=== PATIENT | male | born 1980 | race Caucasian/White ===

== ENCOUNTER → 2021-03-01 11:48 | Outpatient (BNVA) | payer SELFPAY | PROVIDERS: Family Provider Family Medicine; PCP Family Medicine; Visit Provider Registered Nurse | DX: I10 Essential (primary) hypertension (principal); E11.9 Type 2 diabetes mellitus without complications; F41.1 Generalized anxiety disorder; Z76.89 Persons encountering health services in other specified circumstances; E66.9 Obesity, unspecified; M77.8 Other enthesopathies, not elsewhere classified; R10.9 Unspecified abdominal pain | CPT/HCPCS: 80053; 81000; 82043; 83036; 85025 ==

== ENCOUNTER 2022-01-11 14:17 | Emergency (ER) | payer SELFPAY ==
[2022-01-11] VITALS (7 sets, daily range): BP systolic 147–159; BP diastolic 93–95; PULSE 76–101; RESP 14–21; TEMP 36.2; O2SAT 91–94; BMI 29.4
--- NOTE | 2022-01-11 14:27 | XR_ITS ---
WS: [id number] Exam: XR chest 1V portable [id number] Date/Time of Exam: 01/11/2022 2:29 PM Reason For Exam: sob Comparison 05/16/2018. Findings: The lungs are clear and fully expanded. Costophrenic angles are sharp. No infiltrates. Bronchovascula r relief appears normal. Cardiac silhouette is unremarkable. Bony elements are intact. XR/XR chest 1V portable [id number] IMPRESSION: Unremarkable chest radiograph.
--- NOTE | 2022-01-11 14:28 | ED_ITS ---
Documented by User: TRACY Bautista 01/12/22 07:00 HPI - URI/Sore Throat General: Chief Complaint: Shortness of Breath/Dyspnea Stated Complaint: chest pain, sob Time Seen by Provider: 01/11/22 14:27 Source: patient and family Mode of arrival: ambulatory Limitations: no limitations History of Present Illness: Patient is a nice 41-year-old male who presents to ED today along with his significant other for complaints of SOB, right rib pain, chest congestion, nasal congestion, drainage over the past 2 weeks or so. Patient was apparently seen at urgent care in his car and vitals were reported at 87% with a heart rate of 102. Abnormal lung sounds. Because of this he was advised to come to the ED. feels like his sats were low as he was coughing while they were being obtained. Patient is anywhere from 90-93% on room air during my examination. Heart rate is in the 80s. Patient is vaccinated for COVID. He has not been running fevers. He does not complain of a headache or diarrhea. No loss of taste or smell. Patient is not a smoker. No sick contacts. MD elicited complaint: cough and nasal congestion Onset (ago): week(s) (2 weeks) Consistency: constant Able to tolerate fluids by mouth: Yes Associated symptoms: Reports chest pain (R lower rib pain), nasal congestion and sinus pain; Deny abdominal pain, chills, diarrhea, fever(s), headache(s), nausea or vomiting Review of Systems Const: Denies: fever(s), chills, body aches, fatigue or malaise Eyes: Denies: change in vision or blurry vision ENMT: Reports: nasal discharge, nasal congestion, post nasal drip and sinus pain; Denies: throat pain or odynophagia Card: Reports: chest pain (R lower rib pain); Denies: palpitations, irregular heart rhythm, edema, swelling of feet/ankles, lightheadedness, syncope, pre-syncope, dyspnea on exertion or leg pain with exertion Resp: Reports: dyspnea, productive cough, pain on inspiration and chest congestion; Denies: wheezing, stridor or hemoptysis GI: Denies: abdominal pain, nausea, vomiting or diarrhea Musc: Denies: neck pain, back pain, extremity pain or joint pain Skin/Breast: Denies: rash Neuro: Denies: headache(s) PFS ED PFSH: Medical History Diabetes 1.5, managed as type 2 Managed by [employer] Hypertension Small fiber neuropathy Managed by [employer] [facility]. Family History Grandfather Cancer Diabetes Hyperlipidemia Hypertension Stroke Grandmother Cancer Diabetes Dementia Hyperlipidemia Hypertension Stroke Father Diabetes Hyperlipidemia Hypertension Mother Hypertension Social History Smoking and tobacco status: never smoked Alcohol intake: never Adopted: No Caregiver/support person: No Lives independently: No Household members: spouse and children service: No Current occupational status: employed History of recent travel: No Sexually active: Yes Current gender identity: Male Physical Exam Const: COMMON NORMALS: no acute distress, patient oriented x3, no limitations, alert and well nourished GENERAL APPEARANCE: cooperative ORIENTATION/CONSCIOUSNESS: Yes awake, Yes oriented to person, Yes oriented to place and Yes oriented to time HENMT: COMMON NORMALS: normocephalic, atraumatic and Normal external nose present HEAD & SCALP: normal to inspection, normocephalic and atraumatic FACE & SINUS: sinuses nontender NOSE: Normal external nose present THROAT: posterior oropharynx normal Neck/C-Spine: COMMON NORMALS: no lymphadenopathy Chest: COMMONS NORMALS: normal inspection of the chest OTHER: TTP R lower anterior ribs-palpation directly reproduces patient's pain Resp: COMMON NORMALS: normal respiratory effort, No retractions and No use of accessory muscles AUSCULTATION: rhonchi Cardio: COMMON NORMALS: regular rate and regular rhythm RATE: regular rate RHYTHM: regular rhythm GI: COMMON NORMALS: Normal to inspection, nondistended, normoactive bowel sounds present, Soft to palpation, non-tender, No hepatosplenomegaly present and no masses PALPATION: Yes Soft to palpation and Yes No hepatosplenomegaly present Extremity: COMMON NORMALS: capillary refill normal, no clubbing, cyanosis or edema, no calf tenderness and no pedal edema Neuro: COMMON NORMALS: patient oriented x3 SENSORIUM/ORIENTATION: Yes alert, Yes oriented to person, Yes oriented to place and Yes oriented to time Course ED course: Blood sugars over 500. After speaking to patient further he states he only checks his sugars about once a week and they are normally in the 300s. He states over the past two weeks since he has been sick they have been running in the 500s. He has not taken his insulin today. He is not having any vomiting, abdominal pain, or diarrhea. No previous hx of DKA. Will go ahead and order him some fluids/insulin here. He states he has a referral to see Dr. Renteria/endocrinology for further management of his diabetes. Reevaluation(s): Reevaluation #1: I've checked on patient multiple times and he is consistently satting around 91% on RA. CXR normal. Rapid COVID negative. PCR pending. I'm not sure why an otherwise healthy individual would be mildly hypoxic at rest. ABG obtained which shows a pO2 of 60. DKA ruled out. I am going to order CTA for further evaluation of lungs and to r/o PE. I did get patient up myself and walk him around the room. O2 stayed about the same but he became tachy in the mid 120s and was visibly SOB. Vital Signs: Vital signs: Vital Signs Temperature 97.2 F L 01/11/22 14:25 Pulse Rate 86 01/11/22 17:46 Respiratory Rate 18 01/11/22 17:46 Blood Pressure 159/95 01/11/22 17:46 Pulse Oximetry 93 01/11/22 17:46 MDM - URI/Sore Throat Lab Data : 01/11/22 14:42 01/11/22 14:42 Radiology Impressions Chest X-Ray 01/11/22 14:27 IMPRESSION: Unremarkable chest radiograph. Chest CTA 01/11/22 16:16 IMPRESSION: 1. No evidence for pulmonary embolism. 2. No acute cardiopulmonary process. 3. Incidental/nonacute findings are listed in the report. Laboratory Results WBC 6.8 10^3/uL (4.0-10.0) 01/11/22 14:42 RBC 5.43 10^6/uL (4.1-5.3) H 01/11/22 14:42 Hgb 15.9 g/dL (11.7-16.6) 01/11/22 14:42 Hct 46.0 % (42.0-52.0) 01/11/22 14:42 MCV 84.7 fl (80-94) 01/11/22 14:42 MCH 29.3 pg (28.0-34.0) 01/11/22 14:42 MCHC 34.6 g/dL (30.0-36.0) 01/11/22 14:42 RDW 11.9 % (12.1-15.1) L 01/11/22 14:42 Plt Count 279 10^3/cmm (130-400) 01/11/22 14:42 MPV 9.5 fL (7.4-10.4) 01/11/22 14:42 Neut % (Auto) 45.2 % 01/11/22 14:42 Lymph % (Auto) 30.5 % 01/11/22 14:42 Sawyer % (Auto) 5.7 % 01/11/22 14:42 Eos % (Auto) 16.6 % 01/11/22 14:42 Baso % (Auto) 1.6 % 01/11/22 14:42 Neut # (Auto) 3.07 10^3/uL (1.8-7.7) 01/11/22 14:42 Lymph # (Auto) 2.1 10^3/uL (0.8-4.8) 01/11/22 14:42 Sawyer # (Auto) 0.4 10^3/uL (0.2-0.9) 01/11/22 14:42 Eos # (Auto) 1.1 10^3/uL (0.0-0.8) H 01/11/22 14:42 Baso # (Auto) 0.1 10^3/uL (0.0-0.1) 01/11/22 14:42 Nucleated RBC % (auto) 0 % 01/11/22 14:42 Nucleated RBCs # 0.0 /100WBC 01/11/22 14:42 Specimen Type Arterial 01/11/22 15:53 Sample Site Radial, right 01/11/22 15:53 ABG pH 7.42 (7.35-7.45) 01/11/22 15:53 ABG pCO2 37.7 mmHg (35-45) 01/11/22 15:53 ABG pO2 60.7 mmHg (80.0-100.0) L 01/11/22 15:53 ABG HCO3 24.3 mmol/L (22-26) 01/11/22 15:53 ABG O2 Saturation 93.0 01/11/22 15:53 ABG Base Excess 0.0 mmol/L (-2.0-2.0) 01/11/22 15:53 Elias Test Pos 01/11/22 15:53 A-a O2 Gradient 5.5 mmHg (5-10) 01/11/22 15:53 Hematocrit 47.0 % (42-52) 01/11/22 15:53 Hgb O2 Saturation 91.7 % (95-100) L 01/11/22 15:53 Carboxyhemoglobin 1.0 %THgb (0.4-20.1) 01/11/22 15:53 Methemoglobin 0.4 % (0.4-1.5) 01/11/22 15:53 Total Hemoglobin 15.3 g/dL (14-18) 01/11/22 15:53 Sodium 139.0 mmol/L (131-143) 01/11/22 15:53 Potassium 4.2 mmol/L (3.5-5.0) 01/11/22 15:53 Glucose 460.0 mg/dL (70-115) H 01/11/22 15:53 Ionized Calcium Not Reportable 01/11/22 15:53 O2 Delivery Device Room air 01/11/22 15:53 FiO2 21.0 % 01/11/22 15:53 Stock Replenisher ID Monro 01/11/22 15:53 Sodium 137 mmol/L (136-145) 01/11/22 14:42 Potassium 4.6 mmol/L (3.5-5.1) 01/11/22 14:42 Chloride 99 mmol/L (98-107) 01/11/22 14:42 Carbon Dioxide 21 mmol/L (22-29) L 01/11/22 14:42 Anion Gap 21.6 (5-19) H 01/11/22 14:42 BUN 11 mg/dL (6-20) 01/11/22 14:42 Creatinine 1.0 mg/dL (0.7-1.2) 01/11/22 14:42 GFR Calculation 81.9 mL/min (90-130) L 01/11/22 14:42 Glucose 508 mg/dL (65-115) H* 01/11/22 14:42 POC Glucose 408 mg/dL (70-110) H 01/11/22 17:05 Calculated Osmolality 306 mOsm/kg (285-295) H 01/11/22 14:42 Calcium 9.3 mg/dL (8.5-10.5) 01/11/22 14:42 Total Bilirubin 0.4 mg/dL (0.15-1.2) 01/11/22 14:42 AST 13 U/L (0-40) 01/11/22 14:42 ALT 18 U/L (0-41) 01/11/22 14:42 Alkaline Phosphatase 105 IU/L (40-130) 01/11/22 14:42 Total Protein 7.0 g/dL (6.6-8.7) 01/11/22 14:42 Albumin 4.3 g/dL (3.5-5.2) 01/11/22 14:42 Globulin 2.7 g/dL (1.3-4.6) 01/11/22 14:42 Procalcitonin 0.05 ng/mL (0-0.5) 01/11/22 14:42 Serum Ketones Negative (Negative) 01/11/22 14:42 Coronavirus 229E (PCR) Detected (NOT DETECT) A 01/11/22 14:31 SARS-CoV-2 (PCR) Not detected (NOT DETECT) 01/11/22 14:31 SARS-CoV-2 Ag (Rapid) Negative (Negative) 01/11/22 14:36 Discharge Plan Discharge Patient Disposition: Home Clinical Impression: Bronchitis Condition: Stable Prescriptions: New doxycycline monohydrate 100 mg capsule 100 mg PO BID 7 Days Qty: 14 0RF albuterol sulfate 90 mcg/actuation HFA aerosol inhaler 2 inh inhalation Q4H PRN (Reason: shortness of breath or wheezing) Qty: 8.5 0RF No Action gabapentin 600 mg tablet 1,200 mg PO TID 0RF carvedilol 12.5 mg tablet 12.5 mg PO BID 0RF Rx Instructions: must administer with a meal/food clopidogrel 75 mg tablet 75 mg PO DAILY 0RF metformin 500 mg tablet extended release 24 hr See Rx Instructions .ROUTE .COMPLEX 0RF Rx Instructions: 500mg po qam,500mg po at noon and 1000mg po qpm atorvastatin 20 mg tablet 20 mg PO BEDTIME 0RF Novolin R Regular U-100 Insuln 100 unit/mL solution See Rx Instructions .ROUTE .COMPLEX 0RF Rx Instructions: sliding scale 13-17 units with meals Novolin N Flexpen 100 unit/mL (3 mL) insulin pen 30 unit SUBCUT BID 0RF sildenafil 50 mg tablet 50 mg PO DAILY PRN (Reason: Erectile Dysfunction) 0RF Rx Instructions: administer 30 minutes to 4 hours before activity buspirone 10 mg tablet See Rx Instructions .ROUTE .COMPLEX Qty: 45 0RF Dose Instruction: TAKE 1/2 TO 1 (ONE-HALF TO ONE) TABLET BY MOUTH TWICE DAILY Rx Instructions: 10mg po qam and 5mg po bedtime lisinopril 20 mg tablet 20 mg PO DAILY 0RF alpha lipoic acid 100 mg Capsule 100 mg PO TID 0RF Vitamin B-12 50 mcg Tablet 50 mcg PO DAILY 0RF folic acid 800 mcg Tablet 0.8 mg PO DAILY 0RF Cinnamon 500 mg Capsule 500 mg PO DAILY 0RF duloxetine 30 mg capsule,delayed release(DR/EC) 30 mg PO BID 0RF Discharge Orders: Discharge ED (Routine); Ordered 01/11/22 Ordered By: Hemal Fuentes Referrals: Moreno Poe MD [Primary Care Provider] - Discharge Diet: Usual diet Discharge Activity: Increase activity as tolerated Patient Instructions: Acute Bronchitis (ED) Activity Restrictions/Additional Instructions: Home and rest. Drink plenty of fluids. Activity as tolerated. Take antibiotics doxycycline 100 mg twice a day for 7 days. Use albuterol inhaler 2 puffs every 4 hours as needed for coughing, shortness of breath, or increased wheezing. Return to ER for worsening symptoms such as high fever greater than 100.4, worsening chest pain, worsening shortness of breath. Stand Alone Forms: Work/School Release Sign Out Sign Out Data: Patient Sign Out occurred on 01/11/22 at 16:56. Patient's care was discussed, and care was transferred from to Hemal Fuentes. Post-Handoff Eval: Patient was resting well. Lungs auscultated no adventitious sounds were decreased in the bases. Skin was warm and dry. Vital signs were normal. 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 Family History Grandfather Cancer Diabetes Hyperlipidemia Hypertension Stroke Grandmother Cancer Diabetes Dementia Hyperlipidemia Hypertension Stroke Father Diabetes Hyperlipidemia Hypertension Mother Hypertension Social History Smoking and tobacco status: never smoked Alcohol intake: never Adopted: No Caregiver/support person: No Lives independently: No Household members: spouse and children service: No Current occupational status: employed History of recent travel: No Sexually active: Yes Current gender identity: Male Course Vital Signs: Vital signs: Vital Signs Temperature 97.2 F L 01/11/22 14:25 Pulse Rate 86 01/11/22 17:46 Respiratory Rate 18 01/11/22 17:46 Blood Pressure 159/95 01/11/22 17:46 Pulse Oximetry 93 01/11/22 17:46 MDM - URI/Sore Throat Medical Decision Making 41-year-old male patient comes in today with complaints of cough and chest discomfort for the last 2 weeks. Patient has had a COVID test last week it was negative. On exam lungs are decreased in the bases. Skin is warm and dry. Vital signs show some increase in respirations at 21, afebrile, pulse oxygen of 93%, mild elevation in blood pressure 147/93. Differential diagnosis includes pneumonia, bronchitis, pulmonary embolism. Laboratory values noted a unremarkable CBC, CMP did have elevation in blood glucose at 508, anion gap was 21. Serum ketones was negative. CTA of the chest was unremarkable. I encourage patient to drink plenty of fluids. We will put patient on antibiotics doxycycline 100 mg twice a day to treat for probable bronchitis. Albuterol inhaler 2 puffs every 4 hours as needed for cough, shortness of breath, or wheezing. Patient reported understanding and agreed to plan. Lab Data : 01/11/22 14:42 01/11/22 14:42 Radiology Impressions Chest X-Ray 01/11/22 14:27 IMPRESSION: Unremarkable chest radiograph. Chest CTA 01/11/22 16:16 IMPRESSION: 1. No evidence for pulmonary embolism. 2. No acute cardiopulmonary process. 3. Incidental/nonacute findings are listed in the report. Laboratory Results WBC 6.8 10^3/uL (4.0-10.0) 01/11/22 14:42 RBC 5.43 10^6/uL (4.1-5.3) H 01/11/22 14:42 Hgb 15.9 g/dL (11.7-16.6) 01/11/22 14:42 Hct 46.0 % (42.0-52.0) 01/11/22 14:42 MCV 84.7 fl (80-94) 01/11/22 14:42 MCH 29.3 pg (28.0-34.0) 01/11/22 14:42 MCHC 34.6 g/dL (30.0-36.0) 01/11/22 14:42 RDW 11.9 % (12.1-15.1) L 01/11/22 14:42 Plt Count 279 10^3/cmm (130-400) 01/11/22 14:42 MPV 9.5 fL (7.4-10.4) 01/11/22 14:42 Neut % (Auto) 45.2 % 01/11/22 14:42 Lymph % (Auto) 30.5 % 01/11/22 14:42 Sawyer % (Auto) 5.7 % 01/11/22 14:42 Eos % (Auto) 16.6 % 01/11/22 14:42 Baso % (Auto) 1.6 % 01/11/22 14:42 Neut # (Auto) 3.07 10^3/uL (1.8-7.7) 01/11/22 14:42 Lymph # (Auto) 2.1 10^3/uL (0.8-4.8) 01/11/22 14:42 Sawyer # (Auto) 0.4 10^3/uL (0.2-0.9) 01/11/22 14:42 Eos # (Auto) 1.1 10^3/uL (0.0-0.8) H 01/11/22 14:42 Baso # (Auto) 0.1 10^3/uL (0.0-0.1) 01/11/22 14:42 Nucleated RBC % (auto) 0 % 01/11/22 14:42 Nucleated RBCs # 0.0 /100WBC 01/11/22 14:42 Specimen Type Arterial 01/11/22 15:53 Sample Site Radial, right 01/11/22 15:53 ABG pH 7.42 (7.35-7.45) 01/11/22 15:53 ABG pCO2 37.7 mmHg (35-45) 01/11/22 15:53 ABG pO2 60.7 mmHg (80.0-100.0) L 01/11/22 15:53 ABG HCO3 24.3 mmol/L (22-26) 01/11/22 15:53 ABG O2 Saturation 93.0 01/11/22 15:53 ABG Base Excess 0.0 mmol/L (-2.0-2.0) 01/11/22 15:53 Elias Test Pos 01/11/22 15:53 A-a O2 Gradient 5.5 mmHg (5-10) 01/11/22 15:53 Hematocrit 47.0 % (42-52) 01/11/22 15:53 Hgb O2 Saturation 91.7 % (95-100) L 01/11/22 15:53 Carboxyhemoglobin 1.0 %THgb (0.4-20.1) 01/11/22 15:53 Methemoglobin 0.4 % (0.4-1.5) 01/11/22 15:53 Total Hemoglobin 15.3 g/dL (14-18) 01/11/22 15:53 Sodium 139.0 mmol/L (131-143) 01/11/22 15:53 Potassium 4.2 mmol/L (3.5-5.0) 01/11/22 15:53 Glucose 460.0 mg/dL (70-115) H 01/11/22 15:53 Ionized Calcium Not Reportable 01/11/22 15:53 O2 Delivery Device Room air 01/11/22 15:53 FiO2 21.0 % 01/11/22 15:53 Stock Replenisher ID Pedro 01/11/22 15:53 Sodium 137 mmol/L (136-145) 01/11/22 14:42 Potassium 4.6 mmol/L (3.5-5.1) 01/11/22 14:42 Chloride 99 mmol/L (98-107) 01/11/22 14:42 Carbon Dioxide 21 mmol/L (22-29) L 01/11/22 14:42 Anion Gap 21.6 (5-19) H 01/11/22 14:42 BUN 11 mg/dL (6-20) 01/11/22 14:42 Creatinine 1.0 mg/dL (0.7-1.2) 01/11/22 14:42 GFR Calculation 81.9 mL/min (90-130) L 01/11/22 14:42 Glucose 508 mg/dL (65-115) H* 01/11/22 14:42 POC Glucose 408 mg/dL (70-110) H 01/11/22 17:05 Calculated Osmolality 306 mOsm/kg (285-295) H 01/11/22 14:42 Calcium 9.3 mg/dL (8.5-10.5) 01/11/22 14:42 Total Bilirubin 0.4 mg/dL (0.15-1.2) 01/11/22 14:42 AST 13 U/L (0-40) 01/11/22 14:42 ALT 18 U/L (0-41) 01/11/22 14:42 Alkaline Phosphatase 105 IU/L (40-130) 01/11/22 14:42 Total Protein 7.0 g/dL (6.6-8.7) 01/11/22 14:42 Albumin 4.3 g/dL (3.5-5.2) 01/11/22 14:42 Globulin 2.7 g/dL (1.3-4.6) 01/11/22 14:42 Procalcitonin 0.05 ng/mL (0-0.5) 01/11/22 14:42 Serum Ketones Negative (Negative) 01/11/22 14:42 Coronavirus 229E (PCR) Detected (NOT DETECT) A 01/11/22 14:31 SARS-CoV-2 (PCR) Not detected (NOT DETECT) 01/11/22 14:31 SARS-CoV-2 Ag (Rapid) Negative (Negative) 01/11/22 14:36 Discharge Plan Discharge Patient Disposition: Home Clinical Impression: Bronchitis Condition: Stable Prescriptions: New doxycycline monohydrate 100 mg capsule 100 mg PO BID 7 Days Qty: 14 0RF albuterol sulfate 90 mcg/actuation HFA aerosol inhaler 2 inh inhalation Q4H PRN (Reason: shortness of breath or wheezing) Qty: 8.5 0RF No Action gabapentin 600 mg tablet 1,200 mg PO TID 0RF carvedilol 12.5 mg tablet 12.5 mg PO BID 0RF Rx Instructions: must administer with a meal/food clopidogrel 75 mg tablet 75 mg PO DAILY 0RF metformin 500 mg tablet extended release 24 hr See Rx Instructions .ROUTE .COMPLEX 0RF Rx Instructions: 500mg po qam,500mg po at noon and 1000mg po qpm atorvastatin 20 mg tablet 20 mg PO BEDTIME 0RF Novolin R Regular U-100 Insuln 100 unit/mL solution See Rx Instructions .ROUTE .COMPLEX 0RF Rx Instructions: sliding scale 13-17 units with meals Novolin N Flexpen 100 unit/mL (3 mL) insulin pen 30 unit SUBCUT BID 0RF sildenafil 50 mg tablet 50 mg PO DAILY PRN (Reason: Erectile Dysfunction) 0RF Rx Instructions: administer 30 minutes to 4 hours before activity buspirone 10 mg tablet See Rx Instructions .ROUTE .COMPLEX Qty: 45 0RF Dose Instruction: TAKE 1/2 TO 1 (ONE-HALF TO ONE) TABLET BY MOUTH TWICE DAILY Rx Instructions: 10mg po qam and 5mg po bedtime lisinopril 20 mg tablet 20 mg PO DAILY 0RF alpha lipoic acid 100 mg Capsule 100 mg PO TID 0RF Vitamin B-12 50 mcg Tablet 50 mcg PO DAILY 0RF folic acid 800 mcg Tablet 0.8 mg PO DAILY 0RF Cinnamon 500 mg Capsule 500 mg PO DAILY 0RF duloxetine 30 mg capsule,delayed release(DR/EC) 30 mg PO BID 0RF Discharge Orders: Discharge ED (Routine); Ordered 01/11/22 Ordered By: Hemal Fuentes Referrals: Moreno Poe MD [Primary Care Provider] - Discharge Diet: Usual diet Discharge Activity: Increase activity as tolerated Patient Instructions: Acute Bronchitis (ED) Activity Restrictions/Additional Instructions: Home and rest. Drink plenty of fluids. Activity as tolerated. Take antibiotics doxycycline 100 mg twice a day for 7 days. Use albuterol inhaler 2 puffs every 4 hours as needed for coughing, shortness of breath, or increased wheezing. Return to ER for worsening symptoms such as high fever greater than 100.4, worsening chest pain, worsening shortness of breath. Stand Alone Forms: Work/School Release Sign Out Sign Out Data: Patient Sign Out occurred on 01/11/22 at 16:56. Patient's care was discussed, and care was transferred from to Hemal Fuentes. Post-Handoff Eval: Patient was resting well. Lungs auscultated no adventitious sounds were decreased in the bases. Skin was warm and dry. Vital signs were normal. Coding Level of Care Code ED Lithographic Camera Operator for Estela Fwd Exam Comprehensive
[2022-01-11 14:48] LABS: Basophils # 0.1 10^3/uL (0.0-0.1); Basophils % 1.6 %; Eosinophils # 1.1 10^3/uL (0.0-0.8); Eosinophils % 16.6 %; Hemoglobin 15.9 g/dL (11.7-16.6); Lymphocytes # 2.1 10^3/uL (0.8-4.8); Lymphocytes % 30.5 %; Mean Corpuscular HGB Conc 34.6 g/dL (30.0-36.0); Mean Corpuscular Hemoglobin 29.3 pg (28.0-34.0); Mean Corpuscular Volume 84.7 fl (80-94); Mean Platelet Volume 9.5 fL (7.4-10.4); Monocytes # 0.4 10^3/uL (0.2-0.9); Monocytes % 5.7 %; Neutrophils # 3.07 10^3/uL (1.8-7.7); Neutrophils % 45.2 %; Nucleated Red Blood Cells % 0 %; Platelet Count 279 10^3/cmm (130-400); Red Blood Count 5.43 10^6/uL (4.1-5.3); Red Cell Distribution Width 11.9 % (12.1-15.1); White Blood Count 6.8 10^3/uL (4.0-10.0)
[2022-01-11 15:19] LABS: Alanine Aminotransferase 18 U/L (0-41); Albumin Level 4.3 g/dL (3.5-5.2); Alkaline Phosphatase 105 IU/L (40-130); Anion Gap 21.6 (5-19); Aspartate Amino Transferase 13 U/L (0-40); Blood Urea Nitrogen 11 mg/dL (6-20); Calcium 9.3 mg/dL (8.5-10.5); Carbon Dioxide 21 mmol/L (22-29); Chloride 99 mmol/L (98-107); Creatinine Clr Calc Pharmacy 110.2424; Globulin 2.7 g/dL (1.3-4.6); Glomerular Filtration Rate 81.9 mL/min (90-130); Osmolality Calculated 306 mOsm/kg (285-295); Potassium 4.6 mmol/L (3.5-5.1); Sodium 137 mmol/L (136-145); Total Bilirubin 0.4 mg/dL (0.15-1.2)
[2022-01-11] MEDS: ipratropium-albuterol 3 mL Neb INHALATION (15:20)
[2022-01-11 15:23] LABS: Glucose 508 mg/dL (65-115)
[2022-01-11 15:24] LABS: Procalcitonin 0.05 ng/mL (0-0.5)
[2022-01-11] MEDS: sodium chloride 0.9% 1,000 ML 999 ML IV (15:33)
[2022-01-11 15:37] LABS: Ketone (Acetest) Serum Negative (Negative)
[2022-01-11] MEDS: insulin regular-human 100 units/1 mL 10 UNIT IVP (15:39)
[2022-01-11 15:46] LABS: SARS Covid-2 Antigen Negative (Negative)
[2022-01-11 16:09] LABS: ABG PCO2 37.7 mmHg (35-45); ABG PH Result 7.42 (7.35-7.45); Alveolar-Arterial Oxygen Gradi 5.5 mmHg (5-10); Blood Gas Allen Test Pos; Blood Gas Operator Identificat MONRO; Blood Gas Sample Site Radial, right; Blood Gas Sample Type Arterial; HCO3 ABG 24.3 mmol/L (22-26); HGB O2 Sat 91.7 % (95-100); Methemoglobin 0.4 % (0.4-1.5); Oxygen Device ROOM AIR; PO2 ABG 60.7 mmHg (80.0-100.0); Potassium Level - ABG 4.2 mmol/L (3.5-5.0); Total Hemoglobin 15.3 g/dL (14-18)
--- NOTE | 2022-01-11 16:16 | CTR_ITS ---
PROCEDURE INFORMATION: Exam: CTA Chest With Contrast Exam date and time: 01/11/2022 4:16 PM Age: 41 years old Clinical indication: Shortness of breath; Additional info: Hypoxia, SOB TECHNIQUE: Imaging protocol: Computed tomographic angiography of the chest with contrast. 3D rendering (Not supervised by radiologist): MIP and/or 3D reconstructed images were created by the technologist. Radiation optimization: All CT scans at this facility use at least one of these dose optimization techniques: automated exposure control; mA and/or kV adjustment per patient size (includes targeted exams where dose is matched to clinical indication); or iterative reconstruction. Contrast material: OMNI 350; Contrast volume: 70 ml; Contrast route: INTRAVENOUS (IV); COMPARISON: CR XR chest 1V portable [id number] 01/11/2022 2:45 PM RADIATION DOSE METRICS: Total DLP (mGy-cm): 1167.59 FINDINGS: Pulmonary arteries: No filling defects in the pulmonary arteries to suggest pulmonary embolism. Aorta: No evidence for aortic aneurysm or aortic dissection. Trachea: Tracheobronchial structures are patent. Lungs: Lungs are clear bilaterally. Calcified granuloma in the right lower lobe. Small pneumatocele in the right middle lobe. Pleural spaces: No pneumothorax. No pleural effusion. Heart: No cardiomegaly. No pericardial effusion. Esophagus: The esophagus is unremarkable. Mediastinal space: No mediastinal hematoma. No pneumomediastinum. Lymph nodes: No lymphadenopathy. Calcified lymph nodes in the mediastinum and right hilum. Liver: The visualized liver is unremarkable. Gallbladder and bile ducts: The visualized gallbladder is unremarkable. Pancreas: The visualized pancreas is unremarkable. No pancreatic ductal dilatation. Spleen: The spleen is unremarkable. Adrenal glands: The right and left adrenal glands are unremarkable. Kidneys and ureters: The visualized right and left kidneys are unremarkable. Bones/joints: [id number] multilevel degenerative changes in the visualized spine. Soft tissues: The extrathoracic soft tissues are unremarkable. CT/CT angio chest PE protcl [id number] IMPRESSION: 1. No evidence for pulmonary embolism. 2. No acute cardiopulmonary process. 3. Incidental/nonacute findings are listed in the report.
--- NOTE | 2022-01-11 16:47 | ECG_ITS ---
[facility] Test Date: 2022-01-11 Pat Name: Harvey Garcia Department: Room: Gender: Male Spring Tacker: : 1980 Requested By: Roz Carvajal Order Number: [id number] Joanna MD: Krystin Koo M.D. Measurements Intervals Guston Rate: 84 P: 57 NE: 171 QRS: 66 QRSD: 110 T: 22 QT: 353 QTc: 419 Interpretive Statements SINUS RHYTHM INCOMPLETE RIGHT BUNDLE BRANCH BLOCK POSSIBLE INFERIOR MYOCARDIAL INFARCTION , OF INDETERMINATE AGE Compared to ECG 07/02/2016 01:01:27 Incomplete right bundle-branch block now present Myocardial infarct finding now present Electronically Signed On 01-11-2022 17:44:33 TRAP SETTER by Krystin Koo M.D. [id number] f
[2022-01-11] MEDS: iohexol 350 mg/mL 100 mL Btl IV ×2 (16:52)
[2022-01-11 17:09] LABS: Glucose Point of Care 408 mg/dL (70-110)
[2022-01-11 17:09] LABS: Glucose Point of Care 493 mg/dL (70-110)
--- NOTE | 2022-01-11 17:25 | PC.PHAR ---
pt states he takes care of his own medications-pt states he gets his insulin otc at [facility]-states [facility] of [facility]and gets some from [address] [facility] [phone]-notes are made in the pharmacy comments
[2022-01-11 17:38] LABS: Adenovirus Not Detected (NOT DETECT); Chlamydia Pneumoniae Not Detected (NOT DETECT); Coronavirus 229E,HKU1,NL63,OC4 Detected (NOT DETECT); Human Metapneumovirus Not Detected (NOT DETECT); Human Rhinovirus/Enterovirus Not Detected (NOT DETECT); Influenza A Not Detected (NOT DETECT); Influenza A H1 Not Detected (NOT DETECT); Influenza A H1-2009 Not Detected (NOT DETECT); Influenza A H3 Not Detected (NOT DETECT); Influenza B Not Detected (NOT DETECT); Mycoplasma Pneumoniae Not Detected (NOT DETECT); Parainfluenza Virus Type 1 Not Detected (NOT DETECT); Parainfluenza Virus Type 2 Not Detected (NOT DETECT); Parainfluenza Virus Type 3 Not Detected (NOT DETECT); Parainfluenza Virus Type 4 Not Detected (NOT DETECT); Respiratory Syncytial Virus A Not Detected (NOT DETECT); Respiratory Syncytial Virus B Not Detected (NOT DETECT); SARS-COV-2 Not Detected (NOT DETECT)
[2022-01-11] MEDS: doxycycline 100 mg Tablet PO (17:43)
[2022-01-12 19:25] LABS: Glucose Point of Care 404 mg/dL (70-110)
== END 2022-01-11 17:47 | disposition home or self-care (01) ==
PROVIDERS: Physician Assistant; Emergency Provider Nurse Practitioner Family; PCP Family Medicine
DX: J40 Bronchitis, not specified as acute or chronic (principal); Z79.02 Long term (current) use of antithrombotics/antiplatelets; Z79.84 Long term (current) use of oral hypoglycemic drugs; Z79.4 Long term (current) use of insulin; I10 Essential (primary) hypertension; E13.9 Other specified diabetes mellitus without complications; Z20.822 Contact with and (suspected) exposure to COVID-19
CPT/HCPCS: 36416; 36600; 71045; 71275; 80051; 80053; 82009; 82330; 82805; 82962; 84145; 85025; 87426; 87635; 93005; 94640; 96361; 96374; 96375; 99284; J1815; J2930; J7030; Q9967

== ENCOUNTER → 2023-05-10 11:41 | Outpatient (BNVA) | payer SELFPAY | PROVIDERS: PCP Registered Nurse; Visit Provider Registered Nurse | DX: E78.5 Hyperlipidemia, unspecified (principal); R05.8 Other specified cough | CPT/HCPCS: 80053; 80061; 81000; 82043; 83036 ==

== ENCOUNTER → 2024-03-29 10:12 | Outpatient (BNVA) | payer OTHER, SELFPAY | PROVIDERS: PCP Registered Nurse; Visit Provider Internal Medicine | DX: E13.9 Other specified diabetes mellitus without complications (principal); E78.5 Hyperlipidemia, unspecified | CPT/HCPCS: 80053; 80061; 82044; 83036 ==

== ENCOUNTER → 2024-04-21 15:10 | Outpatient (BNVA) | payer OTHER, SELFPAY | PROVIDERS: PCP Registered Nurse; Visit Provider Emergency Medicine | DX: S99.921A Unspecified injury of right foot, initial encounter (principal); W19.XXXA Unspecified fall, initial encounter | CPT/HCPCS: 73630 ==

== ENCOUNTER 2024-05-13 13:35 | Outpatient (CLI) | payer OTHER, SELFPAY ==
--- NOTE | 2024-05-13 13:45 | MR_ITS ---
WS: [id number] EXAMINATION: MR foot RT wo con* [id number] ORDER DATE: 05/13/2024 1:38 PM COMPARISON: None. HISTORY: S99.921A - Unspecified injury of right foot, initial enco... CONTRAST: None. TECHNIQUE: Sagittal T1, sagittal STIR, coronal PD, coronal T2, axial T1, axial T2, and axial PD imagi ng with fat saturation technique. FINDINGS: Some images degraded by motion. Normal anatomic alignment. Degenerative arthritis first MTP. Mild degenerative narrowing involving th e MTP and IP joints. No acute fractures. Soft tissue edema along the dorsal midfoot and forefoot. T2 hyperintense cystic lesion likely ganglion cyst measuring 10.5 x 5.7 mm between the third and fourth metatarsal shafts. Recommend clinical correlation with area of pain. No evidence of abscess or drainable fluid collection. Normal visualized plantar aponeurosis. No other acute findings. MR/MR foot RT wo con* [id number] IMPRESSION: 1. No acute fractures. 2. T2 hyperintense cystic lesion likely ganglion cyst measuring 10.5 x 5.7 mm interposed between the third and fourth metatarsal shafts dorsally. Recommend c linical correlation with area of pain. Normal underlying bone marrow signal. 3. No other acute findings.
== END 2024-05-13 13:36 | disposition home or self-care (01) ==
PROVIDERS: PCP Registered Nurse; Visit Provider Registered Nurse
DX: S99.921A Unspecified injury of right foot, initial encounter (principal); M85.671 Other cyst of bone, right ankle and foot; M19.071 Primary osteoarthritis, right ankle and foot
CPT/HCPCS: 73718

== ENCOUNTER → 2024-06-05 15:10 | Outpatient (BNVA) | payer OTHER, SELFPAY | PROVIDERS: PCP Registered Nurse; Visit Provider Podiatrist Foot & Ankle Surgery | DX: M79.671 Pain in right foot (principal); S92.811A Other fracture of right foot, initial encounter for closed fracture; X58.XXXA Exposure to other specified factors, initial encounter; E13.9 Other specified diabetes mellitus without complications; Z79.84 Long term (current) use of oral hypoglycemic drugs; Z79.4 Long term (current) use of insulin | CPT/HCPCS: 73630 ==

== ENCOUNTER → 2024-06-20 15:25 | Outpatient (BNVA) | payer OTHER, SELFPAY | PROVIDERS: PCP Registered Nurse; Visit Provider Podiatrist Foot & Ankle Surgery | DX: S92.811A Other fracture of right foot, initial encounter for closed fracture; W19.XXXA Unspecified fall, initial encounter; E13.9 Other specified diabetes mellitus without complications; Z79.4 Long term (current) use of insulin; Z79.84 Long term (current) use of oral hypoglycemic drugs | CPT/HCPCS: 73630 ==

== ENCOUNTER 2024-07-03 05:45 | Day surgery (SDC) | payer OTHER, SELFPAY ==
[2024-07-03] VITALS (9 sets, daily range): BP systolic 79–111; BP diastolic 59–86; PULSE 72–93; RESP 14–20; TEMP 36.2–36.7; O2SAT 92–97; BMI 30.4
[2024-07-03] MEDS: gabapentin 300 mg Capsule PO (06:41)
[2024-07-03] MEDS: acetaminophen 1,000 MG/100 ML PIGGYBACK 400 MG IV (06:41)
[2024-07-03] MEDS: sodium chloride 0.9% 1,000 ML 30 ML IV (06:41)
--- NOTE | 2024-07-03 06:44 | ANES.PREANE2 ---
Pre-Anesthetic Assessment Height/Weight: Height 1.73 m Weight 90.718 kg Temp Pulse Resp BP Pulse Ox O2 Del Method 97.2 F L 93 18 111/86 97 Room Air 07/03/24 06:12 07/03/24 06:12 07/03/24 06:12 07/03/24 06:12 07/03/24 06:12 07/03/24 06:12 Preop Diagnosis: Right foot tibial sesamoid fracture Operation Date: 07/03/24 07:00 Proposed Procedures p Sesamoidectomy Tibial Sesamoid Distal Frag Excision(Right) - Mike Castellanos DPM Familial anesthetic complications: None Was Beta Alejandro taken within 24 hours: N/A Was Clonidine taken within 24 hours: N/A Last intake: Intake Last Liquid Date 07/02/24 Last Liquid Time 21:00 Last Solid Date 07/02/24 Last Solid Time 19:30 Social No alcohol and No tobacco marijuana use Exam alert, oriented x 3, clear to auscultation bilaterally and regular rate & rhythm Airway Mallampati: Class III Dentition: other (many damaged teeth, crumbling molars) Pulmonary Asthma ? DHARMESH - Snores CV/HEM Hypertension Metabolic Diabetes Mellitus Anesthetic Plan ASA status: 3 Anesthesia: MAC Risk of > 500 ml blood loss (7ml/kg in children): No Medications/Allergies Home Medications Medication Instructions Recorded Confirmed Last Taken Type alpha lipoic acid 100 mg capsule 100 mg PO TID 01/11/22 07/02/24 07/02/24 History cinnamon bark 500 mg capsule 500 mg PO DAILY 01/11/22 07/02/24 07/02/24 History (Cinnamon) cyanocobalamin (vitamin B-12) 50 50 mcg PO DAILY 01/11/22 07/02/24 07/02/24 History mcg tablet (Vitamin B-12) folic acid 800 mcg tablet 0.8 mg PO DAILY 01/11/22 07/02/24 07/02/24 History blood sugar diagnostic (ReliOn #400 ea 06/21/22 06/05/24 Unknown Rx Prime Test Strips) pen needle, diabetic 32 gauge x #400 ea 06/21/22 06/05/24 Unknown Rx 5/32 (Comfort EZ Pen [place]) atorvastatin 20 mg tablet 20 mg PO BEDTIME 90 days #90 tabs 08/21/23 07/02/24 07/02/24 Rx sildenafil 50 mg tablet 100 mg (2 x 50 mg) PO DAILY PRN 01/08/24 07/02/24 Unknown Rx Erectile Dysfunction 30 days #14 tabs montelukast 10 mg tablet 10 mg PO DAILY allergic asthma 90 02/26/24 07/02/24 07/02/24 Rx (Singulair) days #90 tabs insulin aspart U-100 100 unit/mL 40 unit SUBCUT TID 04/24/24 07/02/24 07/02/24 History (3 mL) subcutaneous pen (Novolog FlexPen U-100 Insulin aspart) insulin glargine 100 unit/mL (3 50 unit SUBCUT DAILY 04/24/24 07/02/24 07/02/24 History mL) subcutaneous pen (Lantus Solostar U-100 Insulin) JENELLE ORR #1 ea 04/26/24 06/05/24 Unknown Rx duloxetine 30 mg capsule,delayed 30 mg PO BID #90 caps 06/03/24 07/02/24 07/02/24 Rx release albuterol sulfate 90 mcg/actuation 2 puff inhalation Q4-5H PRN 07/02/24 07/02/24 Unknown History aerosol inhaler Shortness Of Breath Or Wheezing budesonide-formoterol HFA 160 2 puff inhalation BID 07/02/24 07/02/24 07/02/24 History mcg-4.5 mcg/actuation aerosol inhaler (Symbicort) buspirone 10 mg tablet 10 mg PO DIRECTED 07/02/24 07/02/24 07/02/24 History carvedilol 12.5 mg tablet 12.5 mg PO BID 07/02/24 07/03/24 07/03/24 History empagliflozin 10 mg tablet 10 mg PO DAILY 07/02/24 07/02/24 07/02/24 History (Jardiance) gabapentin 600 mg tablet 600 mg PO DAILY 07/02/24 07/02/24 07/02/24 History lisinopril 20 mg tablet 20 mg PO BID 07/02/24 07/02/24 07/02/24 History metformin 500 mg tablet,extended 500 mg PO DIRECTED 07/02/24 07/02/24 07/02/24 History release 24 hr Allergies Allergy/AdvReac Type Severity Reaction Status Date / Time No Known Allergies Allergy Verified 07/02/24 14:42 Current Medications Generic Name Dose Route Start Last Admin Trade Name Radha PRN Reason Stop Dose Admin Sodium Chloride 1,000 mls @ 30 mls/hr 07/03/24 06:00 07/03/24 06:41 Sodium Chloride 0.9% IV 07/04/24 05:59 30 mls/hr .Q24H GEMINI Administration PFSH Anesthesia Medical History Large fiber neuropathy Asthma Hyperlipidemia Hypertension Small fiber neuropathy Managed by [facility]. Diabetes 1.5, managed as type [address] Renteria Surgical History History of vasectomy Family History Grandfather Cancer Diabetes Hyperlipidemia Hypertension Stroke Grandmother Cancer Diabetes Dementia Hyperlipidemia Hypertension Stroke Father Diabetes Hyperlipidemia Hypertension Mother Hypertension Social History Smoking and tobacco/nicotine status: never used tobacco/nicotine Second hand smoke exposure: No Alcohol intake: never Substance/Drug Use: current Substance/Drug use frequency: few times a week Adopted: No Caregiver/support person: No Lives independently: Yes Household members: spouse and children Housing: House Marital status: Number of children: 2 Highest education level completed: Associate Degree: Academic Program service: No Current occupational status: employed Sexually active: Yes Do you think of yourself as: Straight/Heterosexual Current gender identity: Male Data Anesthesia Cardiac Studies: No Data to Display
--- NOTE | 2024-07-03 06:46 | W.PM.OPSUD ---
Surgery/Procedure H&P Update DATE OF PROCEDURE: July 03, 2024 DATE H&P PERFORMED: 06/20/24 H&P UPDATE INFORMATION: I have reviewed H&P completed within last 30 days, I have examined patient prior to procedure, No changes to prior documentation and H&P is in [facility] – [place] [place] EMR on date indicated PREOP DIAGNOSIS: Right foot tibial sesamoid fracture PLANNED PROCEDURE: Operation Date: 07/03/24 07:00 Proposed Procedures p Sesamoidectomy Tibial Sesamoid Distal Frag Excision(Right) - Mike Castellanos DPM
[2024-07-03 06:47] LABS: Glucose Point of Care 191 mg/dL (70-110)
[2024-07-03] MEDS: ceFAZolin 2,000 mg SDV 2000 MG IVP (07:01)
[2024-07-03] MEDS: BUPivacaine 0.5% INJ 30 mL INJECTION (07:05)
--- NOTE | 2024-07-03 07:26 | XR_ITS ---
WS: [id number] INTRAOPERATIVE TECHNIQUE: 2 Spot fluoroscopic images for intraoperative purposes. FLUOROSCOPY TIME: 1 minute 17 seconds CLINICAL INFORMATION: C-ARM PICS DONE [id number] FINDINGS: Localization marker projected over the first metatarsal. XR/XR foot RT 2V [id number] IMPRESSION: Images obtained for intraoperative purposes.
--- NOTE | 2024-07-03 07:57 | W.PM.BPON ---
Date of procedure: 07/03/24 Surgeon name: Dr. Mike Castellanos DPM Cosmetology Teacher(s) name(s): Dionte Procedure(s) performed: Right tibial sesamoid fracture fragment excision Description of findings: right tibial sesamoid fracture Estimated blood loss: 5cc Tourniquet time: 26 minutes Specimen(s) removed: Fracture fragment right tibial sesamoid Post-operative diagnosis: Right tibial sesamoid fracture
--- NOTE | 2024-07-03 07:59 | P.OP_ITS ---
Operative Report Date of procedure: July 03, 2024 Procedure: Date of procedure: 07/03/2024 Pre-op diagnosis: Right tibial sesamoid fracture Post-op diagnosis: Same Post-op findings: Right tibial sesamoid fracture with distal fragment soft and nonviable. Proximal fragment healthy Procedure done: Excision fracture fragment right tibial sesamoid CPT 53465 Implants: None Specimens removed: Fracture fragment right tibial sesamoid Surgeon: Dr. Mike Castellanos DPM Manufacturing Project Manager: Dionte Estimated blood loss: 5 cc Tourniquet time: 26 minutes Complications: None Patient is a 44-year-old male that has a history of right tibial sesamoid fracture. The patient has had the aforementioned chief complaint for some time. Conservative treatment measures have been attempted and the patient has opted for surgical intervention at this time. A lengthy discussion regarding the procedure, including risks and complications has been had with the patient and is noted in the recent clinic note. Written and verbal consent have been obtained. All patient questions have been answered to the patient?s satisfaction. No written or verbal guarantees have been given or implied. The patient has been NPO since midnight. The history has been reviewed and the history and physical is current. The signed consent was confirmed and placed in the patient chart. Patient imaging has been reviewed and is consistent with the diagnosis. Under mild sedation, the patient was brought into the operating room and placed on the table in the supine position. IV antibiotics were given by the anesthesia team as preoperative surgical prophylaxis. General sedation was then performed by the anesthesiateam. A local field block was performed using 0.5% Marcaine plain. A pneumatic tourniquet was then placed about the right ankle. The operative extremity was then prepped and draped in the usual fashion. The e xtremity was then elevated and exsanguinated before the tourniquet was inflated to 250 mmHg. After inflation, the following procedure was then performed. A longitudinal incision was made over the medial aspect of the right first metatarsophalangeal (MTP) joint, directly overlying the tibial sesamoid using a #15 blade. Careful dissection was performed to expose the tibial sesamoid, with particular attention paid to preserving the neurovascular structures. Upon exposure of the fracture site, the distal fragment was identified and examined. It was found to be soft and nonviable, with no evidence of revascularization or healing potential. The decision was made to excise the nonviable fragment. A rongeur was used to completely excise the fragment, and the surrounding area was debrided to remove any loose fragments or debris, ensuring a clean surgical field. Using 3-0 Vicryl the deep tissues were reapproximated to the remaining portion of the tibial sesamoid. Removal of the fracture fragment was visualized on C-arm imaging. The site was then irrigated with copious amounts of sterile saline before attention was directed to closure. Subcutaneous tissue was closed with 3-0 Vicryl followed by skin closure with 4- 0 nylon in horizontal mattress fashion. The incision was dressed with Xeroform, 4 x 4 gauze, Kerlix, Jhon. The patient tolerated the procedure and anesthesia well and without complication. The patient was transported from the operating room to the recovery room with vital signs stable and vascular status intact to all digits of the right foot. The patient was given both written and verbal instructions to remain [ ] to the operative extremity, to keep dressings/splint clean, dry and intact and to take pain medication as directed. The patient will follow-up in the outpatient setting at their scheduled appointment. The patient was discharged with my personal number and was instructed to call if any questions or issues should arise. They were discharged home once anesthesia criteria was met.
[2024-07-03] MEDS: ondansetron 2 mg/ML SDV 2 mL 4 MG IVP (08:19)
--- NOTE | 2024-07-03 09:20 | ANE.PACU2 ---
Inpatient post-anesthesia follow up: Airway intact: Yes Vital signs: Temperature 98.0 F Pulse Rate 72 Respiratory Rate 16 Blood Pressure 103/64 Pulse Oximetry 94 Oxygen Delivery Me thod Room Air Oxygen Flow Rate Fraction of Inspir ed Oxygen Hydration adequate: Yes Nausea and vomiting: No Pain level: 1 Mental status: Baseline
== END 2024-07-03 09:20 | disposition home or self-care (01) ==
PROVIDERS: PCP Registered Nurse; Visit Provider Podiatrist Foot & Ankle Surgery
PROC: (CPT 28315; principal; 2024-07-03 07:00)
DX: S82.201A Unspecified fracture of shaft of right tibia, initial encounter for closed fracture (principal); X58.XXXA Exposure to other specified factors, initial encounter; G47.33 Obstructive sleep apnea (adult) (pediatric); I10 Essential (primary) hypertension; E11.9 Type 2 diabetes mellitus without complications; Z79.4 Long term (current) use of insulin; Z79.84 Long term (current) use of oral hypoglycemic drugs; E78.5 Hyperlipidemia, unspecified
CPT/HCPCS: 28315; 36416; 73620; 76000; 82962; 88307; 88311; J0131; J0690; J2250; J2405; J2704; J3010; J3490; J7030

== ENCOUNTER 2024-07-11 13:34 | Outpatient (CLI) | payer OTHER, SELFPAY ==
--- NOTE | 2024-07-11 13:45 | MR_ITS ---
WS: [id number] MRI HEAD WITH CONTRAST TECHNIQUE: Sagittal T1, T2 axial, T2 axial FLAIR, axial susceptibility weighted imaging, axial diffus ion weighted images, and coronal T2 images were obtained. Pre and post-T1 axial and post T1 coronal i mages. ADC and FSPGR images. CLINICAL INFORMATION: G62.9 - Polyneuropathy, unspecified COMPARISON: None. FINDINGS: No evidence of restricted diffusion to suggest acute ischemia. Ventricular system and basal cisterns are patent. Minimal supratentorial subcortical and periventricular white matter changes mainly in the frontal lobes not significantly changed compared to 2020. This is nonspecific in a patient this age but can be seen with hypertension, diabetes, and migraine headaches. Normal optic chiasm and pituitar y infundibulum. Temporal lobes and hippocampal formations are normal in appearance. Normal cavernous sinuses and Meckel's cave. No signal abnormalities in the mesial temporal lobes. No hemosiderin on susceptibility-weighted images. Normal posterior fossa. Normal vascular flow voids at the skull base. No extra-axial fluid collections. No evidence of mass or mass effect. Paranasal sinuses and mastoid air cells are well aerated. Normal posterior nasopharynx. Normal pituit eric enhancement. No abnormal intracranial enhancement. Normal dural venous sinuses. MR/MR head wo/w con [id number] IMPRESSION: 1. No evidence of restricted diffusion to suggest acute ischemia. 2. Minimal supratentorial white matter changes mainly in the frontal lobes sta ble since 2020. This can be seen with hypertension, diabetes, and migraine head aches but nonspecific. 3. No hemosiderin on the susceptibly weighted images. 4. No abnormal gadolinium enhancement. 5. Temporal lobes and hippocampal formations are normal in appearance. 6. No other suspicious findings.
[2024-07-11] MEDS: gadobenate dimeglumine 5 mL vial IV (14:23)
== END 2024-07-11 13:35 | disposition home or self-care (01) ==
LOC: RAD 13:34
PROVIDERS: PCP Registered Nurse; Visit Provider Psychiatry & Neurology Neurology
DX: G62.9 Polyneuropathy, unspecified (principal); R55 Syncope and collapse
CPT/HCPCS: 70553; A9577

== ENCOUNTER → 2024-07-17 13:50 | Outpatient (BNVA) | payer OTHER, SELFPAY | PROVIDERS: PCP Registered Nurse; Visit Provider Podiatrist Foot & Ankle Surgery | DX: S92.812D Other fracture of left foot, subsequent encounter for fracture with routine healing; X58.XXXD Exposure to other specified factors, subsequent encounter; E13.69 Other specified diabetes mellitus with other specified complication; Z79.4 Long term (current) use of insulin; Z79.84 Long term (current) use of oral hypoglycemic drugs | CPT/HCPCS: 73630 ==

== ENCOUNTER → 2024-07-31 14:02 | Outpatient (BNVA) | payer OTHER, SELFPAY | PROVIDERS: PCP Registered Nurse; Visit Provider Podiatrist Foot & Ankle Surgery | DX: S92.812D Other fracture of left foot, subsequent encounter for fracture with routine healing; X58.XXXD Exposure to other specified factors, subsequent encounter | CPT/HCPCS: 73630 ==

== ENCOUNTER → 2024-08-22 14:37 | Outpatient (BNVA) | payer OTHER, SELFPAY | PROVIDERS: PCP Registered Nurse; Visit Provider Podiatrist Foot & Ankle Surgery | DX: S92.811D Other fracture of right foot, subsequent encounter for fracture with routine healing; S99.921D Unspecified injury of right foot, subsequent encounter; X58.XXXD Exposure to other specified factors, subsequent encounter; Z98.890 Other specified postprocedural states | CPT/HCPCS: 73630 ==

== ENCOUNTER → 2024-11-05 09:15 | Outpatient (BNVA) | payer OTHER, SELFPAY | PROVIDERS: PCP Family Medicine; Visit Provider Family Medicine | DX: J45.30 Mild persistent asthma, uncomplicated (principal); E13.9 Other specified diabetes mellitus without complications; E78.5 Hyperlipidemia, unspecified; Z12.11 Encounter for screening for malignant neoplasm of colon; F41.1 Generalized anxiety disorder; I10 Essential (primary) hypertension; N52.9 Male erectile dysfunction, unspecified; G62.9 Polyneuropathy, unspecified; R00.0 Tachycardia, unspecified | CPT/HCPCS: 80053; 80061; 82043; 83036; 85025 ==

== ENCOUNTER 2024-12-11 08:54 | Day surgery (SDC) | payer OTHER, SELFPAY ==
[2024-12-11 09:17] VITALS: BP 134/90; PULSE 86; RESP 17; TEMP 36.2; O2SAT 95; BMI 30.4
[2024-12-11 09:32] LABS: Glucose Point of Care 122 mg/dL (70-110)
[2024-12-11] MEDS: sodium chloride 0.9% 500 ML 15 ML IV (09:34)
--- NOTE | 2024-12-11 10:30 | P.ANESASSM_ITS ---
Pre-Anesthetic Assessment Height/Weight: Height 5 ft 8 in Weight 200 lb Temp Pulse Resp BP Pulse Ox O2 Del Method 97.1 F L 86 17 134/90 95 Room Air 12/11/24 09:17 12/11/24 09:17 12/11/24 09:17 12/11/24 09:17 12/11/24 09:17 12/11/24 09:17 Preop Diagnosis: Screening colonoscopy Operation Date: 12/11/24 10:00 Proposed Procedures p Colonoscopy 22148, G0121, Z12.11(Not Applicable) - Darvin Flannery, DO Was Beta Alejandro taken within 24 hours: N/A Was Clonidine taken within 24 hours: N/A Last intake: Intake Last Liquid Date 12/10/24 Last Liquid Time 21:00 Last Solid Date 12/09/24 Last Solid Time 20:00 Social No alcohol and No tobacco Smokes marijuana Exam alert, oriented x 3, clear to auscultation bilaterally and regular rate & rhythm Airway Submandibular: within normal limits Cervical ROM: within normal limits Mallampati: Class III Dentition: full Comments: Comments: Poor dentition Anesthetic Plan ASA status: 3 Anesthesia: MAC Other: No prior issues with anesthesia Completed bowel prep History of insulin-dependent diabetes, BS 122 Hypertension on lisinopril and carvedilol Smokes marijuana METs greater than 4 Plan for MAC anesthetic Medications/Allergies Home Medications Medication Instructions Recorded Confirmed Last Taken Type alpha lipoic acid 100 mg capsule 100 mg PO TID 01/11/22 12/09/24 12/10/24 18:30 History cinnamon bark 500 mg capsule 500 mg PO DAILY 01/11/22 12/09/24 12/10/24 18:30 History (Cinnamon) cyanocobalamin (vitamin B-12) 50 50 mcg PO DAILY 01/11/22 12/09/24 12/10/24 18:30 History mcg tablet (Vitamin B-12) folic acid 800 mcg tablet 0.8 mg PO DAILY 01/11/22 12/09/24 12/10/24 18:30 History blood sugar diagnostic (ReliOn #400 ea 06/21/22 11/15/24 12/10/24 18:30 Rx Prime Test Strips) pen needle, diabetic 32 gauge x #400 ea 06/21/22 11/15/24 12/10/24 18:30 Rx /32 (Comfort EZ Pen [place]) atorvastatin 20 mg tablet 20 mg PO BEDTIME 90 days #90 tabs 08/21/23 12/09/24 12/10/24 18:30 Rx sildenafil 50 mg tablet 100 mg (2 x 50 mg) PO DAILY PRN 01/08/24 12/09/24 12/10/24 18:30 Rx Erectile Dysfunction 30 days #14 tabs insulin aspart U-100 100 unit/mL 1 unit SUBCUT TID PRN blood sugar 04/24/24 12/09/24 12/10/24 18:30 History (3 mL) subcutaneous pen (Novolog FlexPen U-100 Insulin aspart) DME ALICE ORR #1 ea 04/26/24 11/15/24 12/10/24 18:30 Rx albuterol sulfate 90 mcg/actuation 2 puff inhalation Q4-5H PRN 07/02/24 12/09/24 12/10/24 18:30 History aerosol inhaler Shortness Of Breath Or Wheezing buspirone 10 mg tablet 15 mg PO DIRECTED 07/02/24 12/09/24 12/10/24 18:30 History carvedilol 12.5 mg tablet 12.5 mg PO BID 07/02/24 12/09/24 12/11/24 08:30 History metformin 500 mg tablet,extended 1,000 mg PO BID 07/02/24 12/09/24 12/09/24 History release 24 hr lisinopril 20 mg tablet 20 mg PO BID #180 tabs 09/16/24 12/09/24 12/10/24 18:30 Rx gabapentin 600 mg tablet 1,200 mg (2 x 600 mg) PO TID 3 09/27/24 12/09/24 12/10/24 18:30 Rx months #540 tabs bupropion HCl 150 mg 24 hr tablet, 300 mg PO DAILY 11/05/24 12/09/24 12/10/24 18:30 History extended release duloxetine 60 mg capsule,delayed 60 mg PO BID 11/05/24 12/09/24 12/10/24 18:30 History release insulin glargine 100 unit/mL (3 50 unit SUBCUT DAILY 11/05/24 12/09/24 12/10/24 18:30 History mL) subcutaneous pen (Lantus Solostar U-100 Insulin) empagliflozin 10 mg tablet 10 mg PO DAILY #90 tabs 12/03/24 12/09/24 12/10/24 18:30 Rx (Jardiance) fluticasone propionate 115 2 puff inhalation BID 12/09/24 12/09/24 12/10/24 18:30 History mcg-salmeterol 21 mcg/actuation HFA inhaler (Advair HFA) Allergies Allergy/AdvReac Type Severity Reaction Status Date / Time No Known Allergies Allergy Verified 12/11/24 09:14 Current Medications Generic Name Dose Route Start Last Admin Trade Name Freq PRN Reason Stop Dose Admin Sodium Chloride 500 mls @ 15 mls/hr 12/11/24 09:09 12/11/24 09:34 Sodium Chloride 0.9% IV 12/12/24 09:08 15 mls/hr .Q24H PRN Administration COLONOSCOPY FLUIDS PFSH Anesthesia Medical History (Updated 11/15/24 @ 08:45 by Darvin Flannery DO) Family history of colon cancer Tachyarrhythmia Large fiber neuropathy Asthma Hyperlipidemia Hypertension Small fiber neuropathy Managed by [facility]. Diabetes 1.5, managed as type [address] Renteria Surgical History History of vasectomy Family History Grandfather Cancer Diabetes Hyperlipidemia Hypertension Stroke Grandmother Cancer Diabetes Dementia Hyperlipidemia Hypertension Stroke Father Diabetes Hyperlipidemia Hypertension Mother Hypertension Social History Smoking and tobacco/nicotine status: never used tobacco/nicotine Second hand smoke exposure: No Alcohol intake: never Substance/Drug Use: current Substance/Drug use frequency: few times a week Other substance/drug use details: 5x/week MJ edibles/blunt Adopted: No Caregiver/support person: No Lives independently: Yes Household members: spouse and children Housing: House Marital status: Number of children: 2 Highest education level completed: Associate Degree: Academic Program service: No Current occupational status: employed Sexually active: Yes Do you think of yourself as: Straight/Heterosexual Current gender identity: Male Data Anesthesia Cardiac Studies: No Data to Display
--- NOTE | 2024-12-11 10:35 | W.PM.OPSUD ---
Surgery/Procedure H&P Update DATE OF PROCEDURE: December 11, 2024 DATE H&P PERFORMED: 11/15/24 H&P UPDATE INFORMATION: I have reviewed H&P completed within last 30 days, I have examined patient prior to procedure and No changes to prior documentation PREOP DIAGNOSIS: Screening colonoscopy PLANNED PROCEDURE: Operation Date: 12/11/24 10:00 Proposed Procedures p Colonoscopy 15885, G0121, Z12.11(Not Applicable) - Darvin Flannery DO
[2024-12-11 11:11] VITALS: BP 94/72; PULSE 88; RESP 18; TEMP 36.3; O2SAT 95
[2024-12-11 11:18] VITALS: BP 99/72; PULSE 87; RESP 18; O2SAT 92
[2024-12-11 11:26] VITALS: BP 101/67; PULSE 91; RESP 18; O2SAT 93
[2024-12-11 11:30] VITALS: BP 119/63; PULSE 90; RESP 18; O2SAT 96
--- NOTE | 2024-12-11 11:44 | ANE.PACU2 ---
Inpatient post-anesthesia follow up: Airway intact: Yes Vital signs: Temperature 97.3 F Pulse Rate 90 Respiratory Rate 18 Blood Pressure 119/63 Pulse Oximetry 96 Oxygen Delivery Me thod Room Air Oxygen Flow Rate Fraction of Inspir ed Oxygen Hydration adequate: Yes Nausea and vomiting: No Pain level: 1 Mental status: Baseline
== END 2024-12-11 11:45 | disposition home or self-care (01) ==
PROVIDERS: PCP Family Medicine; Visit Provider Surgery
PROC: 0DJD8ZZ Inspection of Lower Intestinal Tract, Via Natural or Artificial Opening Endoscopic (ICD-10-PCS; CPT 45378; principal; 2024-12-11 10:00)
DX: Z12.11 Encounter for screening for malignant neoplasm of colon (principal); D12.4 Benign neoplasm of descending colon; D12.5 Benign neoplasm of sigmoid colon; E11.9 Type 2 diabetes mellitus without complications; Z79.4 Long term (current) use of insulin; I10 Essential (primary) hypertension; Z79.84 Long term (current) use of oral hypoglycemic drugs; Z80.0 Family history of malignant neoplasm of digestive organs
CPT/HCPCS: 36416; 45381; 45385; 82962; 88305; J2704; J7040